=== PATIENT | female | born 1935 | race Hispanic/Latino ===

== ENCOUNTER → 2020-04-08 | Outpatient (CLI) | payer MEDICARE ==
[~2020-04-08] MED LIST: LIDOCAINE HCL 2% JELLY 5 ML ONE
== END | disposition home or self-care (01) ==
LOC: WHH 09:50
PROVIDERS: ATTEND Family Medicine
DX: E11.622 Type 2 diabetes mellitus with other skin ulcer (principal); L97.825 Non-pressure chronic ulcer of other part of left lower leg with muscle involvement without evidence of necrosis; E11.51 Type 2 diabetes mellitus with diabetic peripheral angiopathy without gangrene; I10 Essential (primary) hypertension; I87.2 Venous insufficiency (chronic) (peripheral); E78.5 Hyperlipidemia, unspecified; G30.9 Alzheimer's disease, unspecified; F02.80 Dementia in other diseases classified elsewhere, unspecified severity, without behavioral disturbance, psychotic disturbance, mood disturbance, and anxiety
CPT/HCPCS: 97606

== ENCOUNTER → 2020-05-06 | Outpatient (CLI) | payer MEDICARE | END | disposition home or self-care (01) | LOC: WHH 09:49 | PROVIDERS: ATTEND Family Medicine | DX: E11.622 Type 2 diabetes mellitus with other skin ulcer (principal); L97.825 Non-pressure chronic ulcer of other part of left lower leg with muscle involvement without evidence of necrosis; E11.51 Type 2 diabetes mellitus with diabetic peripheral angiopathy without gangrene; I10 Essential (primary) hypertension; I87.2 Venous insufficiency (chronic) (peripheral); E78.5 Hyperlipidemia, unspecified; G30.9 Alzheimer's disease, unspecified; F02.80 Dementia in other diseases classified elsewhere, unspecified severity, without behavioral disturbance, psychotic disturbance, mood disturbance, and anxiety | CPT/HCPCS: 29580; A4450; A6021; A6022; A6197; A6456; G0463 ==

== ENCOUNTER → 2020-05-13 | Outpatient (CLI) | payer MEDICARE | END | disposition home or self-care (01) | LOC: WHH 09:30 | PROVIDERS: ATTEND Family Medicine | DX: E11.622 Type 2 diabetes mellitus with other skin ulcer (principal); L97.825 Non-pressure chronic ulcer of other part of left lower leg with muscle involvement without evidence of necrosis; E11.51 Type 2 diabetes mellitus with diabetic peripheral angiopathy without gangrene; I10 Essential (primary) hypertension; I87.2 Venous insufficiency (chronic) (peripheral); E78.5 Hyperlipidemia, unspecified; G30.0 Alzheimer's disease with early onset; F02.80 Dementia in other diseases classified elsewhere, unspecified severity, without behavioral disturbance, psychotic disturbance, mood disturbance, and anxiety | CPT/HCPCS: 29580; A6022; A6197; A6456; G0463 ==

== ENCOUNTER → 2020-05-27 | Outpatient (CLI) | payer MEDICARE | END | disposition home or self-care (01) | LOC: WHH 09:30 | PROVIDERS: ATTEND Family Medicine | DX: E11.622 Type 2 diabetes mellitus with other skin ulcer (principal); L97.825 Non-pressure chronic ulcer of other part of left lower leg with muscle involvement without evidence of necrosis; E11.51 Type 2 diabetes mellitus with diabetic peripheral angiopathy without gangrene; I10 Essential (primary) hypertension; I87.2 Venous insufficiency (chronic) (peripheral); E78.5 Hyperlipidemia, unspecified; G30.0 Alzheimer's disease with early onset; F02.80 Dementia in other diseases classified elsewhere, unspecified severity, without behavioral disturbance, psychotic disturbance, mood disturbance, and anxiety | CPT/HCPCS: 29580; A6021; A6197; A6456; G0463 ==

== ENCOUNTER → 2020-06-10 | Outpatient (CLI) | payer MEDICARE | END | disposition home or self-care (01) | LOC: WHH 09:45 | PROVIDERS: ATTEND Family Medicine | DX: E11.622 Type 2 diabetes mellitus with other skin ulcer (principal); L97.825 Non-pressure chronic ulcer of other part of left lower leg with muscle involvement without evidence of necrosis; E11.628 Type 2 diabetes mellitus with other skin complications; E11.51 Type 2 diabetes mellitus with diabetic peripheral angiopathy without gangrene; I10 Essential (primary) hypertension; I87.2 Venous insufficiency (chronic) (peripheral); E78.5 Hyperlipidemia, unspecified; G30.0 Alzheimer's disease with early onset; F02.80 Dementia in other diseases classified elsewhere, unspecified severity, without behavioral disturbance, psychotic disturbance, mood disturbance, and anxiety | CPT/HCPCS: 11042; 11045; A6022; A6197; A6456 ==

== ENCOUNTER → 2020-06-24 | Outpatient (CLI) | payer MEDICARE | END | disposition home or self-care (01) | LOC: WHH 09:55 | PROVIDERS: ATTEND Family Medicine | DX: E11.622 Type 2 diabetes mellitus with other skin ulcer (principal); L97.825 Non-pressure chronic ulcer of other part of left lower leg with muscle involvement without evidence of necrosis; E11.628 Type 2 diabetes mellitus with other skin complications; E11.21 Type 2 diabetes mellitus with diabetic nephropathy; I10 Essential (primary) hypertension; I87.2 Venous insufficiency (chronic) (peripheral); E78.5 Hyperlipidemia, unspecified; G30.0 Alzheimer's disease with early onset; F02.80 Dementia in other diseases classified elsewhere, unspecified severity, without behavioral disturbance, psychotic disturbance, mood disturbance, and anxiety | CPT/HCPCS: 11042; 11045; A6022; A6197; A6456 ==

== ENCOUNTER → 2020-07-08 | Outpatient (CLI) | payer MEDICARE | END | disposition home or self-care (01) | LOC: WHH 09:40 | PROVIDERS: ATTEND Family Medicine | DX: E11.622 Type 2 diabetes mellitus with other skin ulcer (principal); L97.825 Non-pressure chronic ulcer of other part of left lower leg with muscle involvement without evidence of necrosis; E11.628 Type 2 diabetes mellitus with other skin complications; E11.21 Type 2 diabetes mellitus with diabetic nephropathy; I10 Essential (primary) hypertension; I87.2 Venous insufficiency (chronic) (peripheral); E78.5 Hyperlipidemia, unspecified; G30.0 Alzheimer's disease with early onset; F02.80 Dementia in other diseases classified elsewhere, unspecified severity, without behavioral disturbance, psychotic disturbance, mood disturbance, and anxiety | CPT/HCPCS: 11042; 11045; A6022; A6197; A6456 ==

== ENCOUNTER → 2020-07-22 | Outpatient (CLI) | payer MEDICARE | END | disposition home or self-care (01) | LOC: WHH 09:59 | PROVIDERS: ATTEND Family Medicine | DX: E11.622 Type 2 diabetes mellitus with other skin ulcer (principal); L97.825 Non-pressure chronic ulcer of other part of left lower leg with muscle involvement without evidence of necrosis; E11.628 Type 2 diabetes mellitus with other skin complications; E11.21 Type 2 diabetes mellitus with diabetic nephropathy; I10 Essential (primary) hypertension; I87.2 Venous insufficiency (chronic) (peripheral); E78.5 Hyperlipidemia, unspecified; G30.0 Alzheimer's disease with early onset; F02.80 Dementia in other diseases classified elsewhere, unspecified severity, without behavioral disturbance, psychotic disturbance, mood disturbance, and anxiety | CPT/HCPCS: 11104; 29580; A6022; A6197; A6456 ==

== ENCOUNTER → 2020-07-29 | Outpatient (CLI) | payer MEDICARE ==
[~2020-07-29] MED LIST changes: -LIDOCAINE HCL 2% JELLY 5 ML ONE; +LIDOCAINE HCL 4% LTA SOL 4 ML VIAL ONE
== END | disposition home or self-care (01) ==
LOC: WHH 11:07
PROVIDERS: ATTEND Family Medicine
DX: E11.622 Type 2 diabetes mellitus with other skin ulcer (principal); L97.821 Non-pressure chronic ulcer of other part of left lower leg limited to breakdown of skin; E11.628 Type 2 diabetes mellitus with other skin complications; E11.21 Type 2 diabetes mellitus with diabetic nephropathy; I10 Essential (primary) hypertension; I87.2 Venous insufficiency (chronic) (peripheral); E78.5 Hyperlipidemia, unspecified; G30.0 Alzheimer's disease with early onset; F02.80 Dementia in other diseases classified elsewhere, unspecified severity, without behavioral disturbance, psychotic disturbance, mood disturbance, and anxiety
CPT/HCPCS: A4450; G0463

== ENCOUNTER → 2020-10-14 | Outpatient (CLI) | payer MEDICARE | END | disposition home or self-care (01) | LOC: WHH 09:39 | PROVIDERS: ATTEND Family Medicine | DX: E11.622 Type 2 diabetes mellitus with other skin ulcer (principal); L97.821 Non-pressure chronic ulcer of other part of left lower leg limited to breakdown of skin; D04.72 Carcinoma in situ of skin of left lower limb, including hip; E11.628 Type 2 diabetes mellitus with other skin complications; E11.21 Type 2 diabetes mellitus with diabetic nephropathy; I10 Essential (primary) hypertension; I87.2 Venous insufficiency (chronic) (peripheral); E78.5 Hyperlipidemia, unspecified; G30.0 Alzheimer's disease with early onset; G30.9 Alzheimer's disease, unspecified; F02.80 Dementia in other diseases classified elsewhere, unspecified severity, without behavioral disturbance, psychotic disturbance, mood disturbance, and anxiety | CPT/HCPCS: G0463 ==

== ENCOUNTER → 2021-02-01 | Outpatient (CLI) | payer MEDICARE | END | disposition home or self-care (01) | LOC: WHH 09:55 | PROVIDERS: ATTEND Family Medicine | DX: T86.828 Other complications of skin graft (allograft) (autograft) (principal); E11.622 Type 2 diabetes mellitus with other skin ulcer; L97.822 Non-pressure chronic ulcer of other part of left lower leg with fat layer exposed; C44.719 Basal cell carcinoma of skin of left lower limb, including hip; E11.21 Type 2 diabetes mellitus with diabetic nephropathy; I10 Essential (primary) hypertension; I87.2 Venous insufficiency (chronic) (peripheral); E78.5 Hyperlipidemia, unspecified; G30.0 Alzheimer's disease with early onset; F02.80 Dementia in other diseases classified elsewhere, unspecified severity, without behavioral disturbance, psychotic disturbance, mood disturbance, and anxiety; Y83.2 Surgical operation with anastomosis, bypass or graft as the cause of abnormal reaction of the patient, or of later complication, without mention of misadventure at the time of the procedure | CPT/HCPCS: G0463 ==

== ENCOUNTER → 2021-03-01 | Outpatient (CLI) | payer MEDICARE | END | disposition home or self-care (01) | LOC: WHH 09:53 | PROVIDERS: ATTEND Family Medicine | DX: T86.828 Other complications of skin graft (allograft) (autograft) (principal); E11.622 Type 2 diabetes mellitus with other skin ulcer; L97.822 Non-pressure chronic ulcer of other part of left lower leg with fat layer exposed; C44.719 Basal cell carcinoma of skin of left lower limb, including hip; E11.21 Type 2 diabetes mellitus with diabetic nephropathy; I10 Essential (primary) hypertension; I87.2 Venous insufficiency (chronic) (peripheral); E78.5 Hyperlipidemia, unspecified; G30.0 Alzheimer's disease with early onset; F02.80 Dementia in other diseases classified elsewhere, unspecified severity, without behavioral disturbance, psychotic disturbance, mood disturbance, and anxiety; Y83.2 Surgical operation with anastomosis, bypass or graft as the cause of abnormal reaction of the patient, or of later complication, without mention of misadventure at the time of the procedure | CPT/HCPCS: A4450; G0463 ==